=== PATIENT | male | born 1960 | race Caucasian/White ===

== ENCOUNTER 2023-06-02 09:27 | Observation (INO) | payer OTHER ==
[~2023-06-02] VITALS: Ht 182.9 cm; Wt 93.9 kg
[2023-06-02] VITALS (50 sets, daily range): BP systolic 111–239; BP diastolic 62–159
[2023-06-02 09:58] LABS: BASO% 0.1 % (0-3); EOS% 0.2 % (0-8); HEMATOCRIT 51.8 % (39.0-50.0); HEMOGLOBIN 17.2 g/dl (14.0-18.0); LYMPH% 19.8 % (15-41); MEAN CELL VOLUME 82.4 fL CALC (80.0-100.0); MEAN CORPUSCULAR HGB 27.3 pG CALC (26.0-32.0); MEAN CORPUSCULAR HGB CONC 33.2 g/dL CAL (32.0-36.0); NEUT# 15.38 thou/uL (1.82-7.42); NEUT% 64.2 % (42-76); RED BLOOD COUNT 6.29 mill/uL (4.70-6.10); RED CELL DISTRI WIDTH 12.4 % (11.5-15.5)
[2023-06-02 10:00] LABS: IMMATURE GRANULOCYTES 7.7 % (0.0-5.0)
[2023-06-02 10:03] LABS: ALBUMIN 4.8 g/dL (3.2-5.0); ALKALINE PHOSPHATASE 75 u/l (38-126); AMYLASE 77 u/l (30-110); ANION GAP 19 (6-22 (CALC)); BILIRUBIN, TOTAL 1.1 mg/dL (0.2-1.3); BUN 27 mg/dL (8-23); BUN/CREATININE RATIO 19 (12-20 (CALC)); CARBON DIOXIDE 20 mmol/l (22-30); CHLORIDE 105 mmol/l (95-108); CREATININE 1.4 mg/dL (0.7-1.3); GFR FOR AFR.AMER. > 60 ML/MIN (>=60 (CALC)); GFR OTHER RACES 51 ML/MIN (>=60 (CALC)); LIPASE 155 u/l (23-300); POTASSIUM 4.3 mmol/l (3.5-5.1); SGOT/AST 35 u/l (19-48); SODIUM 140 mmol/l (137-146)
[2023-06-02 10:11] LABS: ACT PARTIAL THROMBO TIME 21.4 SECONDS (20.0-32.5); PROTHROMBIN TIME 10.3 SECONDS (9.0-12.5)
[2023-06-02 12:09] LABS: AMYLASE 77 u/l (30-110)
[2023-06-02 15:31] LABS: URINE BILIRUBIN - DIPSTICK NEGATIVE (NEGATIVE); URINE COLOR YELLOW; URINE GLUCOSE - DIPSTICK NEGATIVE (NEGATIVE); URINE KETONE Negative (NEGATIVE); URINE PROTEIN - DIPSTICK NEGATIVE (NEG-TRACE); URINE SPECIFIC GRAVITY 1.015; URINE UROBILINOGEN - DIPSTICK 0.2 E.U./dL (0.2)
[2023-06-02 15:32] LABS: URINE BLOOD DIPSTICK NEGATIVE (NEGATIVE); URINE LEUK ESTERASE NEGATIVE (NEGATIVE); URINE NITRITE - DIPSTICK NEGATIVE (Negative)
[2023-06-03] VITALS (16 sets, daily range): BP systolic 98–136; BP diastolic 49–78
[2023-06-03 05:06] LABS: BASO% 0.1 % (0-3); EOS% 0.3 % (0-8); IMMATURE GRANULOCYTES 3.7 % (0.0-5.0); LYMPH% 11.5 % (15-41); MEAN CELL VOLUME 84.9 fL CALC (80.0-100.0); MEAN CORPUSCULAR HGB 27.8 pG CALC (26.0-32.0); MEAN CORPUSCULAR HGB CONC 32.8 g/dL CAL (32.0-36.0); MONO% 6.8 % (2-13); NEUT# 9.12 thou/uL (1.82-7.42); NEUT% 77.6 % (42-76); RED BLOOD COUNT 4.85 mill/uL (4.70-6.10); RED CELL DISTRI WIDTH 12.8 % (11.5-15.5)
[2023-06-03 05:22] LABS: HEMATOCRIT 41.2 % (39.0-50.0); HEMOGLOBIN 13.5 g/dl (14.0-18.0)
[2023-06-03 05:28] LABS: ALKALINE PHOSPHATASE 43 u/l (38-126); ANION GAP 9 (6-22 (CALC)); BUN 24 mg/dL (8-23); BUN/CREATININE RATIO 26 (12-20 (CALC)); CARBON DIOXIDE 23 mmol/l (22-30); CHLORIDE 108 mmol/l (95-108); CREATININE 0.9 mg/dL (0.7-1.3); GFR FOR AFR.AMER. > 60 ML/MIN (>=60 (CALC)); GFR OTHER RACES > 60 ML/MIN (>=60 (CALC)); POTASSIUM 4.8 mmol/l (3.5-5.1); SGOT/AST 23 u/l (19-48); SODIUM 135 mmol/l (137-146)
[2023-06-03 05:34] LABS: BILIRUBIN, TOTAL 0.6 mg/dL (0.2-1.3); TOTAL PROTEIN 5.2 g/dL (6.3-8.2)
[2023-06-03] MEDS ORDERED: ESOMEPRAZOLE MA20 MG PO (13:42)
[2023-06-03] MEDS ORDERED: AMLODIPINE BESYL5 MG PO (13:47)
== END 2023-06-03 15:10 | disposition home or self-care (01) | DRG 305 ==
LOC: ED 09:27 → ED-I 12:52 → ED 12:53 → ICU 12:56
PROVIDERS: Family Medicine; ADMIT Internal Medicine; ATTEND Internal Medicine
DX: I16.9 Hypertensive crisis, unspecified (principal); I10 Essential (primary) hypertension; K29.70 Gastritis, unspecified, without bleeding; K21.9 Gastro-esophageal reflux disease without esophagitis; R13.10 Dysphagia, unspecified; I77.819 Aortic ectasia, unspecified site; Z82.49 Family history of ischemic heart disease and other diseases of the circulatory system
CPT/HCPCS: Q9967; S0164